=== PATIENT | male | born 1965 | race Caucasian/White ===

== ENCOUNTER → 2018-10-11 | Day surgery (SDC) | payer OTHER ==
[~2018-10-11] MED LIST: CRESTOR10 MG PO; FENTANYL CITRATE/PF 100MCG/2 ML INJ ONE; HYOSCYAMINE SULFATE 0.5 MG/ML INJ ONE; LIDOCAINE HCL 2% LOCAL INJ 5 ML SDV VIAL INJ ONE; MIDAZOLAM HCL 2 MG/2 ML VIAL ONE; PROPOFOL IV EMULSION 10 MG/ML 50 ML VIAL ONE; ZESTRIL20 MG PO
--- NOTE | 2018-10-11 22:44 | Operative Report ---
DATE OF PROCEDURE: October 11, 2018 REFERRING PHYSICIAN: Dr. Cornelia Bustamante. PROCEDURE PERFORMED: Colonoscopy with polypectomy. INDICATIONS FOR COLONOSCOPY: Colorectal cancer screening. Both father and mother with history of colon cancer. MEDICATION: Patient was done under MAC. Please see anesthesiologist's note. PROCEDURE: With patient in left lateral decubitus position, the flexible fiberoptic Olympus colonoscope was inserted into the rectum with ease and advanced all the way to the cecum. The scope was then withdrawn slowly. Mucosa overlying the cecum, ascending colon, and transverse colon appeared to be within normal limits. One polyp was hot biopsied from the descending. Some minimal diverticulosis was noted in the sigmoid colon. One polyp was hot biopsied from the sigmoid. The rectum grossly appeared to be within normal limits. The scope was then retroflexed into the distal rectum and small internal hemorrhoids were noted, none of which was actively bleeding. The scope was then straightened out. It was subsequently withdrawn. Patient tolerated procedure well. IMPRESSION 1. Descending colon polyp, hot biopsied. 2. Diverticulosis. 3. Sigmoid colon polyp, hot biopsied. 4. Internal hemorrhoids, none actively bleeding. PLAN: Follow up histology. Initiate high-fiber, low-fat diet. Initiate high-fiber supplement. Patient might benefit from a followup colonoscopy in 2-3 years considering his strong family history. Job#: [id number] VAS cc:DR CORNELIA BUSTAMANTE
--- OUTSIDE RECORDS SUMMARY | 2018-10-13 12:48 | XMS REPORT | Clinical Summary ---
Author Author [facility] Address Unknown Phone Unavailable Care Team Providers Care Ceramic Worker Name Role Phone PCP Unavailable Allergies Not on File Medications Not on file Active Problems Not on file Encounters Care Team Description Date Type Specialty Nikunj Winn MD Screening for ischemic heart disease 05/06/2018 Hospital Encounter Nikunj Winn MD Screening for ischemic heart disease (Primary Dx) 05/01/2018 Outside Orders Central Scheduling after 10/12/2017 Social History Date Tobacco Use Types Packs/Day Years Used Never Assessed Sex Assigned at Date Recorded Not on file Industry Job Start Date Occupation Not on file Not on file Not on file Travel End Travel History Travel Start No recent travel history available. Last Filed Vital Signs Not on file Plan of Treatment Not on file Procedures Comments Procedure Name Priority Date/Time Associated Diagnosis XR CHEST 2 VIEWS Routine 05/06/2018 Screening for ischemic 9:19 AM CDT heart disease after 10/12/2017 Results * XR Chest 2 Views (05/06/2018 9:19 AM CDT) Narrative Performed At FINAL REPORT [facility] TECHNIQUE: Frontal and lateral chest radiographs dated 05/06/2018 CLINICAL HISTORY: [place] cardiac check up COMPARISON STUDY: Chest radiograph dated 06/24/2013 FINDINGS: Lungs are clear. No pleural effusion or pneumothorax. Cardiomediastinal silhouette is normal in size. No pulmonary edema. No bone or soft tissue abnormalities are seen. IMPRESSION: Normal chest radiographs. Signed: Bessy Torres MD Report Verified Date/Time:05/06/2018 10:16:18 Reading Location: [facility] Radiology Reading Room Procedure Note Interface, External Ris In - 05/06/2018 10:18 AM CDT FINAL REPORT TECHNIQUE: Frontal and lateral chest radiographs dated 05/06/2018 CLINICAL HISTORY: [place] cardiac check up COMPARISON STUDY: Chest radiograph dated 06/24/2013 FINDINGS: Lungs are clear. No pleural effusion or pneumothorax. Cardiomediastinal silhouette is normal in size. No pulmonary edema. No bone or soft tissue abnormalities are seen. IMPRESSION: Normal chest radiographs. Signed: Bessy Torres MD Report Verified Date/Time: 05/06/2018 10:16:18 Reading Location: [facility] Radiology Reading Room Performing Organization Address City/State/Zipcode Phone Number GE RIS after 10/12/2017 Insurance Payer Benefit Subscriber ID Type Phone Address Plan / Group [facility] PPO xxxxxxxxx PPO CARE POS [facility] ONLY
--- OUTSIDE RECORDS SUMMARY | 2018-10-13 12:49 | XMS REPORT ---
Author Author [facility] Address Unknown Phone Unavailable Care Team Providers Care Paper Reeler Name Role Phone Unavailable Unavailable Problems This patient has no known problems. Allergies, Adverse Reactions, Alerts This patient has no known allergies or adverse reactions. Medications This patient has no known medications. Results Test Description Test Time Test Comments Text Results Atomic Results Result Comments RAD, CHEST, 2 VIEWS 2018-05-06 10:16:00 Reason for Exam:->[facility] cardiac check up FINAL REPORT TECHNIQUE: Frontal and lateral chest radiographs dated 05/06/2018 CLINICAL HISTORY: [place] cardiac check up COMPARISON STUDY: Chest radiograph dated 06/24/2013 FINDINGS: Lungs are clear. No pleural effusion or pneumothorax. Cardiomediastinal silhouette is normal in size. No pulmonary edema. No bone or soft tissue abnormalities are seen. IMPRESSION: Normal chest radiographs. Signed: Lynnette Torreseport Verified Date/Time: 05/06/2018 10:16:18 Reading Location: [facility] Radiology Reading Room
== END | disposition home or self-care (01) ==
LOC: OR 09:20
PROVIDERS: ATTEND Internal Medicine Gastroenterology
DX: Z12.11 Encounter for screening for malignant neoplasm of colon (principal); K63.5 Polyp of colon; K57.30 Diverticulosis of large intestine without perforation or abscess without bleeding; K64.8 Other hemorrhoids; I10 Essential (primary) hypertension; R00.1 Bradycardia, unspecified; F41.9 Anxiety disorder, unspecified; Z01.810 Encounter for preprocedural cardiovascular examination; Z68.31 Body mass index [BMI] 31.0-31.9, adult; Z80.0 Family history of malignant neoplasm of digestive organs
CPT/HCPCS: 45384; 93005; J1980; J2001; J2250; 45378